=== PATIENT | male | born 1955 | race Hispanic/Latino ===

== ENCOUNTER → 2017-10-03 | Day surgery (SDC) | payer BC ==
[2017-09-30 12:45] LABS: BASOPHILS % 0.3 % (0.0-1.0); EOSINOPHILS % 0.5 % (0.0-6.0); HEMATOCRIT 44.2 % (38.2-49.6); HEMOGLOBIN 14.9 g/dL (14.0-18.0); LYMPHOCYTES # (AUTO) 1.4 (1.0-3.2); LYMPHOCYTES % 22.9 % (18.0-39.1); MEAN CORPUSCULAR HEMOGLOBIN 30.5 pg (28-32); MEAN CORPUSCULAR HGB CONC 33.7 g/dL (31-35); MEAN CORPUSCULAR VOLUME 90.4 fL (81-99); MONOCYTES # (AUTO) 0.5 (0.2-0.8); NEUTROPHILS % 67.1 % (38.7-80.0); PLATELET COUNT 145 x10e3/uL (140-360); RED BLOOD COUNT 4.89 x10e6/uL (4.3-5.7); RED CELL DISTRIBUTION WIDTH 13.2 % (11.7-14.4)
[2017-09-30 13:07] LABS: ANION GAP 12.4 mmol/L (8-16); BLOOD UREA NITROGEN 10 mg/dL (7-26); BUN/CREATININE RATIO 10 (6-25); CALCIUM 9.2 mg/dL (8.4-10.2); CARBON DIOXIDE 28 mmol/L (22-29); CHLORIDE 105 mmol/L (98-107); CREATININE, SERUM 0.98 mg/dL (0.72-1.25); EST GLOMERULAR FILTRATION RATE > 60 ML/MIN (60-); GLUCOSE 102 mg/dL (74-118); POTASSIUM 4.4 mmol/L (3.5-5.1); SODIUM 141 mmol/L (136-145)
[~2017-10-03] MED LIST: BUPIVACAINE 0.25%/EPI 30ML SDV INJ ONE; DEXAMETHASONE SOD PHOS INJ 4 MG/ML VIAL ONE; FENTANYL CITRATE/PF 100MCG/2 ML INJ ONE; GLYCOPYRROLATE INJ 1MG/ 5 ML SYR ONE; HYDROGEN PEROXIDE 120 ML BTL ONE; KETOROLAC TROMETHAMINE 30 MG/ML VIAL ONE; LIDOCAINE HCL 1% LOCAL INJ 20 ML VIAL ONE; LIDOCAINE HCL 2% LOCAL INJ 5 ML SDV VIAL INJ ONE; MIDAZOLAM HCL 2 MG/2 ML VIAL ONE; NEOSTIGMINE 5 MG/5ML SYR ONE; ONDANSETRON HCL INJ 2 MG/ML VIAL ONE; PROPOFOL IV EMULSION 10 MG/ML 20 ML VIAL ONE; ROCURONIUM BROMIDE 10 MG/ML 5ML VIAL ONE; SEVOFLURANE INHAL SOLN 250 ML PEN BTL ONE
--- NOTE | 2017-10-03 10:31 | Operative Report ---
DATE OF PROCEDURE: October 03, 2017 PREOPERATIVE DIAGNOSES 1. Skin lesion of the left side of the face, probable basal cell carcinoma. 2. Probably infected epidermal inclusion cyst of the back. PROCEDURES PERFORMED 1. Excision of lesion of the left side of the face with a flap closure. 2. Excision of a lesion of the midback with flap closure. ANESTHESIA: General. ESTIMATED BLOOD LOSS: Minimal. DRAINS: None. COMPLICATIONS: None. INDICATIONS AND FINDINGS: This patient is a 62-year-old male complaining of a skin lesion of the left face, intermittent swelling and cyst of the back for several months. INTRAOPERATIVE FINDINGS: The patient had a 1 cm somewhat raised lesion with a central area of ulceration and depression that was located at the area of the angle of the mandible. This appeared to be suspicious for basal cell carcinoma. The patient in addition to that had a 2-1/4 cm round lesion in the midback, which appeared to be an inclusion cyst that was inflamed. Because of this, it was excised of en bloc with the surrounding tissue to prevent any contamination. DESCRIPTION OF PROCEDURE: With the patient lying on the operative table in the supine position, and after administration of general endotracheal anesthesia, he was prepped and draped for excision of the lesion of the face with the patient in the supine position. The lesion was located in the area of the angle of the mandible. It was excised in an elliptical fashion following the lines of tension after infiltration with 0.25% Marcaine with epinephrine of the area. We frances margins that were between 4 and 5 mm in all directions. Then the lesion was excised with gross clear margins. Bleeding points were cauterized. The wound was then closed in layers using 3-0 Vicryl for the soft tissues. The skin was closed using a 5-0 subcuticular suture with Monocryl. Then Dermabond was placed to cover the wound. Patient was then placed in the right lateral decubitus position with the back up exposing the midback. The lesion was then prepped with DuraPrep. The area was also infiltrated with 0.25% Marcaine with epinephrine surrounding the lesion, but excluding the lesion. Then an elliptical incision was made down through the skin, subcutaneous tissue down to the fascia. The lesion which appeared to be an inclusion cyst with some fluid in it was excised completely. Bleeding points were cauterized. Flaps were raised with electrocautery. Then the wound was closed in layers using 2-0 Vicryl for the soft tissues, and the skin was closed using 3-0 vertical mattress silk. A sterile dressing was applied. The patient tolerated the procedure well, and taken to the recovery room in stable condition. Job#: [id number]
== END | disposition home or self-care (01) ==
LOC: OR 05:29
PROVIDERS: ATTEND Surgery
DX: C44.319 Basal cell carcinoma of skin of other parts of face (principal); L72.0 Epidermal cyst; F17.210 Nicotine dependence, cigarettes, uncomplicated; Z01.810 Encounter for preprocedural cardiovascular examination; Z01.812 Encounter for preprocedural laboratory examination
CPT/HCPCS: 14000; 21011; 36415; 80048; 85025; 88304; 88305; 93005; J1100; J1885; J2001; J2250; J2405